=== PATIENT | female | born 1975 | race Hispanic/Latino ===

== ENCOUNTER 2021-12-07 09:23 | Emergency (ER) | payer BC, MEDICAID ==
[2021-12-07] MEDS ORDERED: Ondansetron ODT 4 MG TAB ONE (11:06)
== END 2021-12-07 11:05 | disposition home or self-care (01) ==
LOC: ERS 09:23
DX: U07.1 COVID-19 (principal)
CPT/HCPCS: 99283; Q0162; U0003; U0005